=== PATIENT | male | born 1985 | race Hispanic/Latino ===

== ENCOUNTER 2020-06-10 00:26 | Inpatient (IN) | payer SELFPAY ==
[2020-06-10] VITALS (14 sets, daily range): BP systolic 99–114; BP diastolic 55–66
[~2020-06-10] VITALS: Ht 165.1 cm; Wt 80.0 kg
[~2020-06-10 00:26] MED LIST: FLEXERIL OR; NAPROSYN500 MG PO; NO HOME MEDS
--- NOTE | 2020-06-10 00:30 | NUR ---
PT TO ROOM 6 FOR RLQ ABD PAIN THAT STARTED ON FRIDAY.
[2020-06-10 01:19] LABS: HEMATOCRIT 43.7 % (39.0-50.0); HEMOGLOBIN 14.5 g/dl (14.0-18.0); IMMATURE GRANULOCYTES 0.3 % (0.0-5.0); MEAN CELL VOLUME 83.1 fL CALC (80.0-100.0); MEAN CORPUSCULAR HGB 27.6 pG CALC (26.0-32.0); MEAN CORPUSCULAR HGB CONC 33.2 g/dL CAL (32.0-36.0); NEUT# 9.28 thou/uL (1.82-7.42); RED BLOOD COUNT 5.26 mill/uL (4.70-6.10)
[2020-06-10 01:19] LABS: URINE BILIRUBIN - DIPSTICK NEGATIVE (NEGATIVE); URINE BLOOD DIPSTICK NEGATIVE (NEGATIVE); URINE COLOR YELLOW; URINE GLUCOSE - DIPSTICK NEGATIVE (NEGATIVE); URINE KETONE NEGATIVE (NEGATIVE); URINE LEUK ESTERASE NEGATIVE (NEGATIVE); URINE NITRITE - DIPSTICK NEGATIVE (Negative); URINE PH 6.5 (4.5-8.0); URINE PROTEIN - DIPSTICK NEGATIVE (NEG-TRACE)
--- NOTE | 2020-06-10 01:30 | NUR ---
WAITING ON [facility] FOR CT SCAN.
[2020-06-10 01:33] LABS: BUN 12 mg/dL (9-20); BUN/CREATININE RATIO 13 (12-20 (CALC)); CHLORIDE 104 mmol/l (95-108); GFR > 60 ML/MIN (>=60 (CALC)); GFR FOR AFR.AMER. > 60 ML/MIN (>=60 (CALC)); POTASSIUM 3.7 mmol/l (3.5-5.1); SODIUM 139 mmol/l (137-146)
[2020-06-10 01:34] LABS: ALBUMIN 4.2 g/dL (3.2-5.0); ALKALINE PHOSPHATASE 134 u/l (38-126); AMYLASE 59 u/l (30-110); ANION GAP 12 (6-22 (CALC)); CARBON DIOXIDE 27 mmol/l (22-30); LIPASE 93 u/l (23-300); SGOT/AST 46 u/l (17-59); TOTAL PROTEIN 7.3 g/dL (6.3-8.2)
--- NOTE | 2020-06-10 02:46 | NUR ---
PT HAS APPENDICITIS. DR FOSTER SPOKE TO RADIOLOGFIST.
--- NOTE | 2020-06-10 02:55 | NUR ---
COVID SWAB DONE FOR ADNIT. WAITING ON RESULTS./
[2020-06-10 03:09] LABS: PROTHROMBIN TIME 9.6 SECONDS (9.0-12.5)
--- NOTE | 2020-06-10 03:33 | NUR ---
REPRT GIVEN TO CLIFTON PALOMINO
--- NOTE | 2020-06-10 03:40 | NUR ---
Admission Note Report Given to: CLIFTON PALOMINO Transported by: X Wheelchair Stretcher Transported with: X Nurse Transporter X Patent IV O2 Explosive Ordnance Disposal Manager Location: ICU X MS2
--- NOTE | 2020-06-10 05:30 | NUR ---
PATIENT ADMITTED FROM ER VIA WHEELCHAIR-AWAKE ALERT AND ORIENTEDX3. PATIENT ADMITTED FOR APPENDICITIS. NPO AT THIS TIME. IV SITE TO LAC-IVF NS HUNG AND INFUSING AT 125CC/HR. SITE IS HEALTHY WITH GOOD BLOOD RETURN. VOIDING CLEAR YELLOW URINE IN URINAL. C/O RIGHT ABD PAIN AND MEDICATED WITH MORPHINE 2MG IVP FOR PAIN. PEPE FROM LAB ASSISTED WITH TRANSLATION-PATIENT IS MOSTLY SP[NICOL SPEAKING. ORIENTED TO ROOM AND SURROUNDINGS. INSTRUCTED ON USE OF NURSE CALL LIGHT SYSTEM, TV REMOTE, AND PHONE. SAFETY PRECAUTIONS REINFORCED. CALL LIGHT IN REACH. WILL CONT TO MONITOR.
--- NOTE | 2020-06-10 07:36 | NUR ---
PT RESTING IN BED, NO SIGNS OF DISTRESS NOTED, RESP EVEN AND UNLABORED. PT ALERT AND ORIENTED X3, DISCUSSED POC, AND PRE OP AND POST OP PLANS. PT NPO, SKIN INTACT, ASSESSMENT COMPLETED, INFORMED PT TO REMOVE UNDERGARMENTS AND PANTS ONCE HE VOIDS PRIOR TO OR PICKING HIM UP, PT VOICES NO NEEDS OR COMPLAINTS AT THIS TIME. PT SWABBED FOR BIOFIRE, TOLERATED WELL. CALL LIGHT IN REACH,CONTINUE TO MONITOR.
--- NOTE | 2020-06-10 09:35 | NUR ---
OR ARRIVED WITH STRETCHER TO TAKE PT TO OR, OR NURSE DISCUSSED PROCEDURE AND LEAD FABRICATOR INTERPRETED, CONSENT SIGNED. PT ASSISTED TO STRETCHER.
--- NOTE | 2020-06-10 09:40 | NUR ---
PT TAKEN DOWN TO OR FOR SURGERY
--- NOTE | 2020-06-10 12:36 | NUR ---
PT BROUGHT UP TO MS2 VIA STRETCHER ACCOMPANIED BY OR NURSE, PT TRANSFERRED HIMSELF FROM STRETCHER TO BED BY SLIDING OVER, PT SATS ON RA 90% PLACED ON 2L NC, ABD HAS 3 INCISIONS, ONE INCISION TO ABD HAS BANDAID, CDI. SCDS IN PLACE, WATER AT BEDSIDE, CALL LIGHT IN REACH,CONTINUE TO MONITOR.
--- NOTE | 2020-06-10 13:23 | NUR ---
PT SITTING UP IN BED EATING CLEAR LIQUID DIET, MEDICATED WITH ZOFRAN, CALL LIGHT IN REACH,CONTINUE TO MONITOR.
--- NOTE | 2020-06-10 16:30 | NUR ---
PT RESTING IN BED WITH EYES CLOSED, NO SIGNS OF DISTRESS NOTED, RESP EVEN AND UNLABORED. CALL LIGHT IN REACH,CONTINUE TO MONITOR.
--- NOTE | 2020-06-10 17:48 | NUR ---
PT RESTING IN BED EATING DINNER, TOLERATING WELL. MEDICATED PER AUG, CALL LIGHT IN REACH,CONTINUE TO MONITOR.
--- NOTE | 2020-06-10 19:52 | NUR ---
PT. SITTING UP IN BED WITH NO RESP. DISTRESS NOTED; O2 INFUSING PER NC @2LITERS/MIN. X2 PUNCTURES NOTED TO LOWER QUADRANTS WITH DERMABOND INTACT WITH BANDAID NOTED TO UMBILICUS; C/O ABD PAIN 11/23; MEDICATED WITH ORDERED PRN PERCOCET AND SNACK PROVIDED. PT. RE-INSTRUCTED ON USE OF I/S AND ABLE TO PULL 500 GOAL SET AT 750; WILL CONTINUE TO MONITOR. DENIES FURTHER NEEDS.
--- NOTE | 2020-06-10 22:45 | NUR ---
OFFERED TO AMBULATE PT. AND PT. DECLINES AT THIS TIME.
--- NOTE | 2020-06-10 23:34 | NUR ---
PT. C/O ABD PAIN AND MEDICATED WITH ORDERED/SCHEDULED TORADOL; WILL REASSESS. DENIES FURTHER NEED.SPO2 WNL AND O2 REMOVED AND PLACED AT BEDSIDE IF NEEDED, BUT PT. DENIES SOB OR DIFFICULTY BREATHING. WILL CONTINUE TO MONITOR. IV SITE REMAINS FREE OF REDNESS. CALL LIGHT IS IN REACH.ENCOURAGED TO CALL FOR ANY NEEDS.
--- NOTE | 2020-06-11 03:30 | NUR ---
RESTING IN BED WITH EYES CLOSED; NO DISTRESS NOTED; WILL CONTINUE TO MONITOR.
[2020-06-11 04:00] VITALS: BP 98/60
[2020-06-11 04:51] LABS: INTERNATIONAL NORMALIZED RATIO 1.1 RATIO (0.7-1.3); PROTHROMBIN TIME 10.9 SECONDS (9.0-12.5)
--- NOTE | 2020-06-11 05:30 | NUR ---
PT. MEDICATED WITH SCHED MEDS; SEE EMAR; PT. OOB AND NOW AMBULATING DOWN HALLS WITH STEADY GAIT; TOLERATING WELL. CHAIR SET UP FOR PT. WHEN FINISHED WITH AMBULATION.
[2020-06-11 07:16] VITALS: BP 109/69
--- NOTE | 2020-06-11 07:16 | NUR ---
PT RESTING IN BED, NO SIGNS OF DISTRESS NOTED, PT STATES HE JUST GOT INTO BED HE HAS BEEN AMBULATING IN ROOM, INCISIONS TO ABD CDI WITH DERMABOND X2 AND BANDAID TO UMBILICUS. PT VOICES NO NEEDS OR COMPLAINTS AT THIS TIME, IS AT BEDSIDE, ENCOURAGED IT'S USE. ASSESSMENT COMPLETED, CALL LIGHT IN REACH,CONTINUE TO MONITOR.
--- NOTE | 2020-06-11 12:28 | NUR ---
AT BEDSIDE DISCUSSED DISCHARGE INSTRUCTIONS, EMPLOYEE PLACEMENT SPECIALIST TO INTERPRET. PT TO BE DISCHARGED. CALL LIGHT IN REACH,CONTINUE TO MONITOR.
[2020-06-11] MEDS ORDERED: PERCOCET 5/325M1 TAB PO (12:31)
[2020-06-11] MEDS ORDERED: AUGMENTIN500TAB PO (12:36)
--- NOTE | 2020-06-11 13:35 | NUR ---
Discharge instructions given. Patient verbalizes understanding of same. Discharged in stable condition via Ambulatory to Home with family. All belongings sent with pt.
== END 2020-06-11 13:35 | disposition home or self-care (01) | DRG 340 ==
LOC: ED 00:26 → ED-I 02:38 → ED 02:56 → MS2 02:57
PROVIDERS: Emergency Medicine; ADMIT Surgery; ATTEND Surgery
PROC: 0DTJ4ZZ Resection of Appendix, Percutaneous Endoscopic Approach (ICD-10-PCS; principal; 2020-06-10)
DX: K35.33 Acute appendicitis with perforation, localized peritonitis, and gangrene, with abscess (principal)
CPT/HCPCS: J0131; J1100; Q9967; S0164

== ENCOUNTER 2020-06-12 00:34 | Observation (INO) | payer SELFPAY ==
[~2020-06-12] VITALS: Ht 165.1 cm; Wt 79.5 kg
[~2020-06-12 00:34] MED LIST changes: +AUGMENTIN500TAB PO; +PERCOCET 5/325M1 TAB PO
--- NOTE | 2020-06-12 01:39 | NUR ---
PT AMBULATORY TO ROOM. SHIVERING. TRIAGED AT BEDSIDE.
[2020-06-12 02:34] LABS: HEMATOCRIT 38.4 % (39.0-50.0); HEMOGLOBIN 12.7 g/dl (14.0-18.0); IMMATURE GRANULOCYTES 0.8 % (0.0-5.0); MEAN CELL VOLUME 83.5 fL CALC (80.0-100.0); MEAN CORPUSCULAR HGB 27.6 pG CALC (26.0-32.0); MEAN CORPUSCULAR HGB CONC 33.1 g/dL CAL (32.0-36.0); NEUT# 7.96 thou/uL (1.82-7.42); RED BLOOD COUNT 4.6 mill/uL (4.70-6.10); RED CELL DISTRI WIDTH 13.2 % (11.5-15.5)
--- NOTE | 2020-06-12 02:40 | NUR ---
LABS DRAWN AND IV STARTED. URINE AND SWAB OBTAINED.
[2020-06-12 02:46] LABS: ALBUMIN 3.6 g/dL (3.2-5.0); ALKALINE PHOSPHATASE 123 u/l (38-126); ANION GAP 11 (6-22 (CALC)); BILIRUBIN, TOTAL 0.7 mg/dL (0.0-1.4); BUN 14 mg/dL (9-20); BUN/CREATININE RATIO 12 (12-20 (CALC)); CARBON DIOXIDE 25 mmol/l (22-30); CHLORIDE 106 mmol/l (95-108); CREATININE 1.1 mg/dL (0.7-1.3); GFR > 60 ML/MIN (>=60 (CALC)); GFR FOR AFR.AMER. > 60 ML/MIN (>=60 (CALC)); POTASSIUM 3.8 mmol/l (3.5-5.1); SGOT/AST 35 u/l (17-59); SODIUM 138 mmol/l (137-146); TOTAL PROTEIN 6.5 g/dL (6.3-8.2)
[2020-06-12 02:50] LABS: URINE BILIRUBIN - DIPSTICK NEGATIVE (NEGATIVE); URINE BLOOD DIPSTICK NEGATIVE (NEGATIVE); URINE COLOR YELLOW; URINE GLUCOSE - DIPSTICK NEGATIVE (NEGATIVE); URINE KETONE NEGATIVE (NEGATIVE); URINE LEUK ESTERASE NEGATIVE (NEGATIVE); URINE NITRITE - DIPSTICK NEGATIVE (Negative); URINE PROTEIN - DIPSTICK NEGATIVE (NEG-TRACE); URINE SPECIFIC GRAVITY 1.015; URINE UROBILINOGEN - DIPSTICK 0.2 E.U./dL (0.2)
--- NOTE | 2020-06-12 05:39 | NUR ---
ATTEMPTED TO CALL REPORT. [facility] WILL CALL BACK.
--- NOTE | 2020-06-12 05:47 | NUR ---
REPORT TO [facility]. SEND TO FLOOR IN 15 MINUTES BECAUSE THEY ARE GETTING 2 OTHER ADMISSIONS AT THIS TIME.
--- NOTE | 2020-06-12 06:10 | NUR ---
TO FLOOR VIA W/C. NAD. BELONGINGS WITH PT.
--- NOTE | 2020-06-12 06:18 | NUR ---
PT ARRIVED TO FLOOR VIA WHEELCHAIR. ALERT AND ORIENTED. PT IS [place] SPEAKING. NO APPARENT DISTRESS NOTED. PT AMBULATORY. ORIENTED TO ROOM AND CALL LIGHT SYSTEM AND SAFETY PRECAUTION.
[2020-06-12 06:20] VITALS: BP 105/65
--- NOTE | 2020-06-12 06:28 | NUR ---
IV FLUIDS INITIATED, IV FLUSHED WELL. SITE APPEARS HEALTHY. PT DENIES ANY PAIN OR DISCOMFORT. AFEBRILE AT THIS TIME. INVENTORY COMPLETED BY JEVON, $93 TRIANA COUNTED AND WITNESSED BY CHAIN HOOKER, PT, AND SYNCHRO ASSEMBLER. HOME MEDICATIONS PRESENT IN ROOM PT STATES OK TO SEND TO PHARMACY, WILL OBTAIN WHEN ONCOMING NURSE ARRIVES. TRANSLATED BY JEVON WHITAKER.
[2020-06-12 08:00] VITALS: BP 107/66
--- NOTE | 2020-06-12 11:26 | NUR ---
PT SEEN AWAKE BUT DROWSY, ALERT AND ORIENTED X 3. TEMP 98.6 UPON INITIAL ASSESSMENT. BANDAID NOTED TO UMBILICUS. PT AMBULATORY. PT DOES NOT APPEAR TO BE IN PAIN. ADMISSION ASSESSMENT COMPLETED, PT STABLE.
--- NOTE | 2020-06-12 13:00 | NUR ---
PT SEEN BY DR PENG TODAY. PLAN WILL BE TO EVALUATE PT AGAIN IN THE MORNING FOR PAIN OR FEVER AND PERHAPS TAKE HIM TO SURGERY. PT NPO NOW. PT PROVIDED TYLENOL FOR FEVER OF 101.2.
[2020-06-12 15:25] VITALS: BP 109/65
--- NOTE | 2020-06-12 17:19 | NUR ---
PT RESPONDED WELL TO TYLENOL, DOWN TO 98 AFTER ADMINISTRATION. PT PLACED IN GOWN, REMOVED JACKET AND OTHER ITEMS, RESTS IN THE BED IN NO DISTRESS.
[2020-06-12 19:00] VITALS: BP 113/59
--- NOTE | 2020-06-12 20:00 | NUR ---
PT RESTING IN BED, NO SIGNS OF DISTRESS NOTED, RESP EVEN AND UNLABORED. PT ALERT AND ORIENTED X3, NO EDEMA, DISCUSSED POC, INCISIONS TO ABD WITH DERMABOND INTACT. BANDAID TO UMBILICUS CDI, ASSESSMENT COMPLETED, CALL LIGHT IN REACH,CONTINUE TO MONITOR.
--- NOTE | 2020-06-12 23:52 | NUR ---
PT RESTING IN BED, NO SIGNS OF DISTRESS NOTED, RESP EVEN AND UNLABORED. MEDICATED PER AUG. CALL LIGHT IN REACH,CONTINUE TO MONITOR.
[2020-06-13 04:00] VITALS: BP 114/68
--- NOTE | 2020-06-13 04:12 | NUR ---
PT HAS A LOW GRADE TEMP, TEMP IN ROOM LOWERED. CALL LIGHT IN REACH,CONTINUE TO MONITOR.
[2020-06-13 05:23] LABS: HEMATOCRIT 39.1 % (39.0-50.0); HEMOGLOBIN 12.8 g/dl (14.0-18.0); IMMATURE GRANULOCYTES 0.6 % (0.0-5.0); MEAN CELL VOLUME 83.9 fL CALC (80.0-100.0); MEAN CORPUSCULAR HGB 27.5 pG CALC (26.0-32.0); MEAN CORPUSCULAR HGB CONC 32.7 g/dL CAL (32.0-36.0); NEUT# 5.84 thou/uL (1.82-7.42); RED BLOOD COUNT 4.66 mill/uL (4.70-6.10); RED CELL DISTRI WIDTH 13.1 % (11.5-15.5)
[2020-06-13 05:44] LABS: ALBUMIN 3.1 g/dL (3.2-5.0); ALKALINE PHOSPHATASE 149 u/l (38-126); ANION GAP 13 (6-22 (CALC)); BILIRUBIN, TOTAL 0.9 mg/dL (0.0-1.4); BUN 11 mg/dL (9-20); BUN/CREATININE RATIO 10 (12-20 (CALC)); CARBON DIOXIDE 23 mmol/l (22-30); CHLORIDE 107 mmol/l (95-108); CREATININE 1.1 mg/dL (0.7-1.3); GFR > 60 ML/MIN (>=60 (CALC)); GFR FOR AFR.AMER. > 60 ML/MIN (>=60 (CALC)); SGOT/AST 30 u/l (17-59); SODIUM 138 mmol/l (137-146)
[2020-06-13 07:45] VITALS: BP 119/74
--- NOTE | 2020-06-13 07:45 | NUR ---
ASSESSMENT IS COMPLETED: IV SITE IS FREE FROM REDNESS OR EDEMA.HR IS REG,PULSES ARE STRONG X4, ABD IS SOFT WITH ACTIVE BS. BREATH SOUNDS ARE CLEAR,BILATERALLY, NO C/O SOB., DRESSING ON ABD IS CDI.
--- NOTE | 2020-06-13 08:20 | NUR ---
DR PENG IN TO VISIT WITH PT. WILL ORDER A CT SCAN
--- NOTE | 2020-06-13 09:14 | NUR ---
[facility] [employer] INTERPRET TO THE PT RE: CT AND CONTRAST PT VERBALIZED UNDERSTANDING.
--- NOTE | 2020-06-13 09:46 | NUR ---
PT DRANK THE 2ND GLASS OF CONTRAST.
--- NOTE | 2020-06-13 11:08 | NUR ---
PT IS RELAXING IN BED WITH NO DISTRESS NOTED. IV SITE IS FREE FROM REDNESS OR EDEMA. WAITING ON CT TO CALL FOR PT.
--- NOTE | 2020-06-13 11:40 | NUR ---
PT TRANSPORTED TO HAVE CT SCAN
--- NOTE | 2020-06-13 12:05 | NUR ---
PT RETURNED FROM HAVING CT SCAN
--- NOTE | 2020-06-13 12:30 | NUR ---
PT IS RELAXING IN BED WITH NO DISTRESS NOTED. IV SITE IS FREE FROM REDNESS OR EDEMA.
--- NOTE | 2020-06-13 14:00 | NUR ---
SPOKE WITH DR PENG RE: DIET. WILL GIVE FULL LIQUID.
[2020-06-13 15:57] VITALS: BP 124/76
--- NOTE | 2020-06-13 16:41 | NUR ---
EXPLAINED TO THE PT RE: THE ISP. AND FULL LIQUID. INQUIRED IF HE WAS ABLE TO GO HOME TOLD HE WAS RUNNING [employer] AND TRYING NOT TO GET PNEUMONIA. HAVING ROSIO EXPLAIN TO THE PT.
--- NOTE | 2020-06-13 16:48 | NUR ---
PT INQUIRED IF HE NEEDS TO GO TO ANOTHER HOSPITAL TO GET ANSWERS. INFORMED THAT WE RECEIVED SOME RESULTS AND THE DR IS INCREASING HIS DIET. NEEDS TO USE THE ISP TO KEEP FROM GETTING PNEUMONIA.
--- NOTE | 2020-06-13 18:39 | NUR ---
PT WAS TALKING WITH HIS FAMILY ON THE PHONE. INQUIRED IF PT WAS HAVING PAIN? STATED" MY PAIN GOES ON AND OFF" CONTINUE TO OBSERVE AND MONITOR.
[2020-06-13 19:00] VITALS: BP 106/60
--- NOTE | 2020-06-13 19:30 | NUR ---
PATIENT RESTING IN BED AT THIS TIME-AWAKE ALERT AND ORIENTEDX3. PATIENT MOSTLY MOH[place]K SPEAKING. IVF NS PATENT AND INFUSING VIA LAC SITE AT 125CC/HR. SITE IS HEALTHY AT THIS TIME. ABD IS SOFT WITH ACTIVE BS. PATIENT STATES THAT HE DID HAVE BM TODAY. DENIES ANY PROBLEMS WITH URINATION. PATIENT IS ABLE TO DEMONSTRATE PROPER USE OF IS-INSTRUCTED TO USE Q1H WHILE AWAKE IN REPS OF 10-VERBALIZES UNDERSTANDING OF THE STATED. TEMP 100 AT THIS TIME. SAFETY PRECAUTIONS REINFORCED. CALL LIGHT IN REACH. WILL CONT TO MONITOR.
[2020-06-14 04:00] VITALS: BP 112/72
--- NOTE | 2020-06-14 04:17 | NUR ---
PATIENT RESTING IN BED AT THIS TIME-APPEARS SLEEPING WITH EYES CLOSED. RESPS ARE EVEN AND UNLABORED. IVF NS PATENT AND INFUSING VIA LAC SITE AT 125CC/HR. SITE REMAINS HEALTHY. CALL LIGHT IN REACH. WILL CONT TO MONITOR,
[2020-06-14 07:30] VITALS: BP 118/73
--- NOTE | 2020-06-14 07:30 | NUR ---
ASSESSMENT IS COMPLTED: IV SITE IS FREE FROM REDNESS OR EDEMA. HR IS REG,PULSES ARE STRONG X4, ABD IS SOFT WITH ACTIVE BS BREATH SOUNDS ARE CLEAR,BILATERALLY. ENCOURAGED TO USE THE ISP. BANDAID ON UMBILICUS IS CDI.
--- NOTE | 2020-06-14 09:45 | NUR ---
DR PENG INTO VISIT WITH PTUnruly WHITAKER CNA INTERPRETED.
--- NOTE | 2020-06-14 10:41 | NUR ---
PT RECIEVED DISCHARGE INSTRUCTIONS INTERPRETED BY CHACORTA LAZO VERBALIZED UNDERSTANDING.
--- NOTE | 2020-06-14 11:00 | NUR ---
Discharge instructions given. Patient verbalizes understanding of same. Discharged in stable condition via Wheelchair to Home with family. All belongings sent with pt.
== END 2020-06-14 10:40 | disposition home or self-care (01) | DRG 864 ==
LOC: ED 00:34 → ED-I 02:44 → ED 03:13 → MS2 03:14
PROVIDERS: Emergency Medicine; ADMIT Surgery; ATTEND Surgery
DX: R50.82 Postprocedural fever (principal); J18.9 Pneumonia, unspecified organism; Z90.49 Acquired absence of other specified parts of digestive tract; Z20.828 Contact with and (suspected) exposure to other viral communicable diseases
CPT/HCPCS: G0378; Q9967